=== PATIENT | female | born 1950 | race Caucasian/White ===

== ENCOUNTER 2019-01-21 13:59 | Emergency (ER) | payer MEDICARE, OTHER ==
[~2019-01-21] VITALS: Ht 147.3 cm; Wt 94.6 kg
[2019-01-21 14:14] VITALS: BP 178/125
[2019-01-21] MEDS ORDERED: IBUPROFEN 200 MG TABLET ONE (15:16)
[2019-01-21] MEDS ORDERED: IBUPROFEN 600 MG TABLET PO ONE (15:30)
== END 2019-01-21 16:54 | disposition home or self-care (01) ==
LOC: ED 16:37
DX: S52.121A Displaced fracture of head of right radius, initial encounter for closed fracture (principal); S00.33XA Contusion of nose, initial encounter; W01.0XXA Fall on same level from slipping, tripping and stumbling without subsequent striking against object, initial encounter; Y93.89 Activity, other specified; Y92.009 Unspecified place in unspecified non-institutional (private) residence as the place of occurrence of the external cause; Y99.8 Other external cause status
CPT/HCPCS: 70486; 99284

== ENCOUNTER → 2020-12-28 | Outpatient (CLI) | payer MEDICARE | END | disposition home or self-care (01) | LOC: CFH 07:44 | PROVIDERS: ATTEND Family Medicine | DX: N64.4 Mastodynia (principal) | CPT/HCPCS: 76642; 77062; 77066; G0279 ==